=== PATIENT | female | born 1980 | race Two or more races ===

== ENCOUNTER 2020-06-12 03:45 | Emergency (ER) | payer MEDICAID ==
[~2020-06-12] VITALS: Ht 157.5 cm; Wt 75.3 kg
[2020-06-12] MEDS ORDERED: TETANUS-DIPTH-ACEL PERTUSSIS 0.5ML SYR Tdap IM ONE (07:00)
[2020-06-12 07:10] VITALS: BP 113/74
== END 2020-06-12 07:36 | disposition home or self-care (01) ==
LOC: ER 03:45
DX: S71.112A Laceration without foreign body, left thigh, initial encounter (principal); S80.211A Abrasion, right knee, initial encounter; Z88.1 Allergy status to other antibiotic agents; V43.52XA Car driver injured in collision with other type car in traffic accident, initial encounter; Y93.89 Activity, other specified; Y92.488 Other paved roadways as the place of occurrence of the external cause; Y99.8 Other external cause status
CPT/HCPCS: 90471; 90715

== ENCOUNTER 2021-05-27 20:55 | Emergency (ER) | payer MEDICAID ==
[~2021-05-27] VITALS: Ht 157.5 cm; Wt 81.6 kg
[2021-05-28 00:53] LABS: Basophils # (auto) 0.1 10 ^3/uL (0-0.2); Basophils % (auto) 0.8 % (0.0-2.0); Eosinophils # (auto) 0.2 10 ^3/uL (0-0.8); Eosinophils % (auto) 2.7 % (0.0-7.0); Hematocrit 43.9 % (36.0-46.0); Hemoglobin 15.3 g/dL (12.2-16.2); Lymphocytes # (auto) 1.9 10 ^3/uL (0.4-5.4); Lymphocytes % (auto) 27.6 % (10.0-50.0); Mean Corpuscular Hemoglobin 32.2 pg (28.0-32.0); Mean Corpuscular Hgb Conc. 34.9 g/dL (32.0-36.0); Mean Corpuscular Volume 92.3 fL (80.0-100.0); Monocytes # (auto) 0.5 10 ^3/uL (0-1.3); Monocytes % (auto) 7.6 % (0.0-12.0); Neutrophils # (auto) 4.3 10 ^3/uL (1.6-8.6); Neutrophils % (auto) 61.3 % (37.0-80.0); Nucleated Red Blood Cells % 0.1 %; Red Blood Cells 4.76 10^6/uL (4.0-5.20); Red Cell Distribution Width 12.3 % (11.8-14.3)
[2021-05-28 01:10] LABS: Albumin 3.5 g/dL (3.4-5.0); BUN/Creatinine Ratio 14.1; Calcium 8.8 mg/dL (8.5-10.1); Potassium 3.3 mmol/L (3.5-5.1)
[2021-05-28 01:13] LABS: Bilirubin, Total 0.4 mg/dL (0.2-1.0); Total Protein 7.6 g/dL (6.4-8.2)
[2021-05-28] MEDS ORDERED: IOHEXOL 300 MG/ML 100ML BOTTLE IJ ONE (02:02)
[2021-05-28 02:52] VITALS: BP 130/90
[2021-05-28] MEDS ORDERED: IBUPROFEN 600 MG TAB PO ONE (06:15)
[2021-05-28] MEDS ORDERED: ACETAMINOPHEN 325 MG TAB PO ONE (06:15)
[2021-05-28] MEDS ORDERED: LIDOCAINE 1% HCL (LOCAL ANESTH.) INJ 20ML MDV ID ONE (06:45)
[2021-05-28] MEDS ORDERED: SULF800T8 PO (07:15)
[2021-05-28] MEDS ORDERED: IBUP800T27 PO (07:15)
== END 2021-05-28 07:31 | disposition home or self-care (01) ==
LOC: ER 21:00
DX: S00.86XA Insect bite (nonvenomous) of other part of head, initial encounter (principal); L02.01 Cutaneous abscess of face; Z88.1 Allergy status to other antibiotic agents; Z20.822 Contact with and (suspected) exposure to COVID-19; W57.XXXA Bitten or stung by nonvenomous insect and other nonvenomous arthropods, initial encounter; Y93.89 Activity, other specified; Y92.89 Other specified places as the place of occurrence of the external cause; Y99.8 Other external cause status
CPT/HCPCS: 10060; 36415; 70491; 80053; 83605; 84702; 85025; 87040; 87426; 99284; Q9967